=== PATIENT | male | born 1955 | race Caucasian/White ===

== ENCOUNTER → 2017-03-11 | Day surgery (SDC) | payer BC ==
[~2017-03-11] VITALS: Ht 177.8 cm; Wt 100.6 kg
[~2017-03-11] MED LIST: FLOMAX 0.40.4 MG/CAP PO
[2017-03-11 10:19] VITALS: BP 129/82; PULSE 62; TEMP 98.2
[2017-03-11 13:10] VITALS: BP 135/78; PULSE 64; TEMP 97.7
[2017-03-11 13:25] VITALS: BP 122/81; PULSE 68
[2017-03-11 13:40] VITALS: BP 128/70; PULSE 67
== END ==
LOC: SDCO 03-04 09:00
DX: Z12.11 Encounter for screening for malignant neoplasm of colon (principal)
CPT/HCPCS: J2250; J3010; J7030

== ENCOUNTER → 2023-09-05 | Outpatient (CLI) | payer MEDICARE | LOC: COL.RAD 09:04 → EDBD 09:04 → COL.RAD 10:45 | DX: N28.1 Cyst of kidney, acquired (principal) | CPT/HCPCS: Q9967 ==

== ENCOUNTER 2023-11-20 11:21 | Emergency (ER) | payer BC ==
[~2023-11-20] VITALS: Ht 180.3 cm; Wt 98.2 kg
[2023-11-20 12:07] LABS: BASO # 0.1 K/mm3 (0.0-0.2); BASO % 0.4 % (0.0-2.0); EOS # 0.2 K/mm3 (0.0-0.7); EOS % 1.2 % (0.0-4.0); GRAN # 13.8 K/mm3 (1.4-6.5); GRAN % 81.7 % (42.2-75.2); HEMATOCRIT 41.7 % (42.0-52.0); HEMOGLOBIN 14.4 g/dl (13.5-18.0); LYMPH # 1.9 K/mm3 (1.2-3.4); LYMPH % 11.4 % (20.0-51.0); MEAN CELL VOLUME 99 fl (80.0-100.0); MEAN CORPUSCULAR HEMOGLOBIN 34 pg (27-31); MEAN CORPUSCULAR HGB CONC 35 g/dl (33.0-37.0); MEAN PLATELET VOLUME 10.1 fl (7.4-10.4); MONO # 0.8 K/mm3 (0.1-0.6); MONO % 4.8 % (1.7-9.3); PLATELET COUNT 232 K/mm3 (130-400); RED BLOOD COUNT 4.22 M/mm3 (4.20-5.60)
[2023-11-20 13:14] LABS: BILIRUBIN,TOTAL 1.3 mg/dL (0.2-1.2); CALCIUM 9.3 mg/dL (8.4-10.2); CREATININE, serum 0.88 mg/dL (0.72-1.25); POTASSIUM 4.3 mmol/L (3.5-4.5); TOTAL PROTEIN 6.9 gm/dL (6.2-8.1)
[2023-11-20 15:00] VITALS: BP 148/87; PULSE 96; TEMP 97.9
== END 2023-11-20 14:59 | disposition home or self-care (01) ==
LOC: COL.ER 11:21
PROVIDERS: Personal Emergency Response Attendant
DX: R07.89 Other chest pain (principal); R73.9 Hyperglycemia, unspecified
CPT/HCPCS: J1885